=== PATIENT | male | born 1960 | race Two or more races ===

== ENCOUNTER 2024-04-05 11:50 | Inpatient (IN) | payer OTHER ==
[~2024-04-05] VITALS: Ht 167.6 cm; Wt 74.0 kg
[2024-04-05] MEDS ORDERED: ACETAMINOPHEN TAB 650MG DOSE (2X325MG) PO PRN (13:10)
[2024-04-05 14:25] VITALS: BP 126/80; TEMP 98.3; O2SAT 98
[2024-04-05] MEDS ORDERED: CLOP75TA2 PO (18:23)
[2024-04-05] MEDS ORDERED: ACET650T15 PO (18:23)
[2024-04-05] MEDS ORDERED: HUMA100I3 SC (18:23)
[2024-04-05] MEDS ORDERED: ASPI81TA26 PO (18:23)
[2024-04-05] MEDS ORDERED: LORATADINE 10 MG TAB PO PRN (19:05)
[2024-04-05] MEDS ORDERED: HOME MED LIST COMPLETE! XX SCH ×3 (19:40→20:20)
[2024-04-05] MEDS ORDERED: ATOR80TA59 PO (19:48)
[2024-04-05 20:00] VITALS: BP 135/80; TEMP 97.3; O2SAT 98
[2024-04-05] MEDS ORDERED: NORV5TAB PO (20:01)
[2024-04-05] MEDS ORDERED: ATOR40TA75 PO (20:18)
[2024-04-05] MEDS: ATORVASTATIN 20 MG TAB PO SCH (20:26)
[2024-04-05 23:13] VITALS: BP 137/82; TEMP 97.9; O2SAT 97
[2024-04-05] MEDS: CALCIUM CARBONATE 500 MG CHEW U/D PO PRN (23:52)
[2024-04-06 04:00] VITALS: BP 140/38; TEMP 97.9; O2SAT 96
[2024-04-06 06:37] LABS: HEMATOCRIT 37.7 % (42.0-52.0); HEMOGLOBIN 12.3 g/dl (13.5-17.5); MEAN CORPUSCULAR HEMOGLOBIN 24.6 pg (27.0-33.0); MEAN CORPUSCULAR HGB CONC 32.6 g/dl (32.0-36.5); MEAN CORPUSCULAR VOLUME 75.4 fl (80.0-96.0); PLATELET COUNT, AUTOMATED 294 10^3/uL (150-450); WHITE BLOOD COUNT 7.6 10^3/uL (4.0-10.0)
[2024-04-06 07:06] LABS: BLOOD UREA NITROGEN 14 MG/DL (9-23); CALCIUM LEVEL 9.1 MG/DL (8.3-10.6); CARBON DIOXIDE LEVEL 26 MMOL/L (20-31); CHLORIDE LEVEL 107 MMOL/L (98-107); GLOMERULAR FILTRATION RATE > 60.0 (>49); GLUCOSE, FASTING 88 MG/DL (74-106); POTASSIUM SERUM 4.1 MMOL/L (3.5-5.1); SODIUM LEVEL 139 MMOL/L (136-145)
[2024-04-06] MEDS: CLOPIDOGREL 75 MG TAB PO SCH (07:12)
[2024-04-06] MEDS: ASPIRIN 81MG ENTERIC TABLET PO SCH (07:12)
[2024-04-06 12:00] VITALS: BP 145/74; TEMP 97.9; O2SAT 97
[2024-04-06 20:00] VITALS: BP 137/83; TEMP 97.7; O2SAT 98
[2024-04-07 04:00] VITALS: BP 143/79; TEMP 97.6; O2SAT 98
[2024-04-07 12:00] VITALS: BP 140/74; TEMP 97; O2SAT 98
[2024-04-07 20:00] VITALS: BP 161/97; TEMP 98.2; O2SAT 96
[2024-04-07 22:35] VITALS: BP 139/78
[2024-04-08 04:00] VITALS: BP 122/76; TEMP 98.7; O2SAT 100
[2024-04-08 12:00] VITALS: BP 114/74; TEMP 97.9; O2SAT 97
[2024-04-08 20:00] VITALS: BP 124/64; TEMP 97.6; O2SAT 100
[2024-04-09 04:00] VITALS: BP 126/75; TEMP 98.3; O2SAT 100
[2024-04-09 12:00] VITALS: BP 123/85; TEMP 98.1; O2SAT 99
[2024-04-09 20:00] VITALS: BP 134/83; TEMP 98.2; O2SAT 99
[2024-04-10 04:00] VITALS: BP 140/76; TEMP 98.1; O2SAT 100
[2024-04-10 12:00] VITALS: BP 130/82; TEMP 97.6; O2SAT 98
[2024-04-10 20:00] VITALS: BP 140/87; TEMP 98.1; O2SAT 96
[2024-04-11 04:00] VITALS: BP 135/79; TEMP 98.1; O2SAT 96
[2024-04-11 12:00] VITALS: BP 135/91; TEMP 98; O2SAT 99
[2024-04-11 20:00] VITALS: BP 136/88; TEMP 97.5; O2SAT 99
[2024-04-12 04:20] VITALS: BP 142/79; TEMP 97.3; O2SAT 99
[2024-04-12 12:00] VITALS: BP 138/82; TEMP 97; O2SAT 100
[2024-04-12] MEDS ORDERED: NORV5TAB PO (15:33)
[2024-04-12] MEDS ORDERED: FERR325T3 PO (15:33)
[2024-04-12] MEDS ORDERED: ASPI81TAEC PO (15:33)
[2024-04-12] MEDS ORDERED: B-12100021 PO (15:33)
[2024-04-12] MEDS ORDERED: CLOP75TA2 PO (15:33)
[2024-04-12] MEDS ORDERED: ATOR40TA75 PO (15:33)
[2024-04-12 20:00] VITALS: BP 139/85; TEMP 98; O2SAT 100
[2024-04-13 04:00] VITALS: BP 122/85; TEMP 97.7; O2SAT 99
[2024-04-13 08:28] VITALS: BP 122/85
== END 2024-04-13 12:30 | disposition home or self-care (01) | DRG 58 ==
LOC: M PM&R 14:25
PROVIDERS: ADMIT Student in an Organized Health Care Education/Training Program; ATTEND Student in an Organized Health Care Education/Training Program
DX: I69.354 Hemiplegia and hemiparesis following cerebral infarction affecting left non-dominant side (principal); I10 Essential (primary) hypertension; D64.9 Anemia, unspecified; E53.8 Deficiency of other specified B group vitamins; E61.1 Iron deficiency; F17.220 Nicotine dependence, chewing tobacco, uncomplicated; M21.372 Foot drop, left foot; F10.10 Alcohol abuse, uncomplicated; R27.8 Other lack of coordination; Z79.899 Other long term (current) drug therapy; N43.3 Hydrocele, unspecified; L72.0 Epidermal cyst

== ENCOUNTER 2024-04-28 13:57 | Inpatient (IN) | payer OTHER ==
[~2024-04-28] VITALS: Ht 167.6 cm; Wt 67.1 kg
[~2024-04-28 13:57] MED LIST: ACET650T15 PO; ASPI81TA26 PO; ASPI81TAEC PO; ATOR40TA75 PO; ATOR80TA59 PO; B-12100021 PO; CLOP75TA2 PO; FERR325T3 PO; HUMA100I3 SC; NORV5TAB PO
[2024-04-28] MEDS ORDERED: ACETAMINOPHEN TAB 650MG DOSE (2X325MG) PO PRN (15:25)
[2024-04-28] MEDS ORDERED: MIRALAX *UNIT DOSE* 17GM PACKET PO PRN (15:25)
[2024-04-28 16:50] VITALS: BP 157/89; TEMP 98.6; O2SAT 100
[2024-04-28] MEDS ORDERED: ACET1TAB55 PO (17:57)
[2024-04-28] MEDS ORDERED: ASPI-226 PO (17:57)
[2024-04-28] MEDS ORDERED: FERR325T3 PO (17:57)
[2024-04-28] MEDS ORDERED: HOME MED LIST COMPLETE! XX SCH (18:00)
[2024-04-28 20:00] VITALS: BP 154/85; TEMP 98.4; O2SAT 99
[2024-04-28] MEDS: ATORVASTATIN 20 MG TAB PO SCH (20:06)
[2024-04-29 04:00] VITALS: BP 114/73; TEMP 97.8; O2SAT 97
[2024-04-29] MEDS: ENOXAPARIN 40MG/0.4ML SYRINGE (J1650 PER 10MG) SC SCH (07:47)
[2024-04-29] MEDS: CLOPIDOGREL 75 MG TAB PO SCH (07:47)
[2024-04-29] MEDS: FERROUS SULFATE 325MG TAB PO SCH (07:47)
[2024-04-29] MEDS: ASPIRIN 81MG ENTERIC TABLET PO SCH (07:47)
[2024-04-29 08:29] LABS: BASO # 0.1 10^3/uL (0.0-0.2); BASO % 0.7 % (0.0-1.0); EOS # 2.2 10^3/uL (0.0-0.5); HEMATOCRIT 40.3 % (42.0-52.0); HEMOGLOBIN 12.9 g/dl (13.5-17.5); LYMPH # 1.8 10^3/uL (1.5-5.0); LYMPH % 20.4 % (24.0-44.0); MEAN CORPUSCULAR HEMOGLOBIN 24.6 pg (27.0-33.0); MEAN CORPUSCULAR VOLUME 76.8 fl (80.0-96.0); MONO # 0.4 10^3/uL (0.0-0.8); MONO % 4.4 % (2.0-8.0); NEUTROPHILS # 4.5 10^3/uL (1.5-8.5); NEUTROPHILS % 50.2 % (36.0-66.0); PLATELET COUNT, AUTOMATED 310 10^3/uL (150-450); RED BLOOD COUNT 5.25 10^6/uL (4.30-6.10)
[2024-04-29 08:44] LABS: EOS % 23.9 % (0.0-3.0)
[2024-04-29 09:00] LABS: BLOOD UREA NITROGEN 9 MG/DL (9-23); CALCIUM LEVEL 9.4 MG/DL (8.3-10.6); CARBON DIOXIDE LEVEL 25 MMOL/L (20-31); CHLORIDE LEVEL 105 MMOL/L (98-107); CREATININE FOR GFR 1.08 MG/DL (0.70-1.30); GLOMERULAR FILTRATION RATE > 60.0 (>49); GLUCOSE, FASTING 88 MG/DL (74-106); POTASSIUM SERUM 4.2 MMOL/L (3.5-5.1); SODIUM LEVEL 136 MMOL/L (136-145)
[2024-04-29] MEDS ORDERED: amLODIPine 5 MG TAB PO SCH (09:00)
[2024-04-29 12:00] VITALS: BP 116/78; TEMP 98.4; O2SAT 97
[2024-04-29 20:00] VITALS: BP 142/85; TEMP 97.5; O2SAT 98
[2024-04-30 04:00] VITALS: BP 126/80; TEMP 98.8; O2SAT 95
[2024-04-30 12:00] VITALS: BP 139/78; TEMP 99.2; O2SAT 97
[2024-04-30 20:00] VITALS: BP 139/78; TEMP 98.6; O2SAT 97
[2024-05-01 04:00] VITALS: BP 122/87; TEMP 98.2; O2SAT 97
[2024-05-01 07:10] LABS: HEMATOCRIT 37.1 % (42.0-52.0); MEAN CORPUSCULAR HEMOGLOBIN 24.6 pg (27.0-33.0); MEAN CORPUSCULAR HGB CONC 32.3 g/dl (32.0-36.5); MEAN CORPUSCULAR VOLUME 76.2 fl (80.0-96.0); PLATELET COUNT, AUTOMATED 297 10^3/uL (150-450); RED BLOOD COUNT 4.87 10^6/uL (4.30-6.10); WHITE BLOOD COUNT 9.5 10^3/uL (4.0-10.0)
[2024-05-01 12:00] VITALS: BP 120/86; TEMP 98.2; O2SAT 99
[2024-05-01 20:00] VITALS: BP 162/87; TEMP 98.7; O2SAT 97
[2024-05-02 04:00] VITALS: BP 120/74; TEMP 97.8; O2SAT 98
[2024-05-02 11:50] VITALS: BP 121/86; TEMP 98.1; O2SAT 96
[2024-05-02 20:00] VITALS: BP 144/82; TEMP 97.9; O2SAT 98
[2024-05-03 04:00] VITALS: TEMP 97.7; O2SAT 98
[2024-05-03 11:50] VITALS: BP 127/78; TEMP 97.7; O2SAT 97
[2024-05-03 20:00] VITALS: BP 154/90; TEMP 98.2; O2SAT 97
[2024-05-04 04:00] VITALS: TEMP 97.7; O2SAT 98
[2024-05-04 12:00] VITALS: BP 120/76; TEMP 97.1; O2SAT 100
[2024-05-04] MEDS ORDERED: FERR1TAB8 PO (13:53)
== END 2024-05-04 14:45 | disposition home or self-care (01) | DRG 58 ==
LOC: M PM&R 16:55
PROVIDERS: ADMIT Student in an Organized Health Care Education/Training Program; ATTEND Student in an Organized Health Care Education/Training Program
DX: I69.354 Hemiplegia and hemiparesis following cerebral infarction affecting left non-dominant side (principal); U07.1 COVID-19; I10 Essential (primary) hypertension; F10.20 Alcohol dependence, uncomplicated; E78.5 Hyperlipidemia, unspecified; D50.9 Iron deficiency anemia, unspecified; M21.372 Foot drop, left foot; F17.220 Nicotine dependence, chewing tobacco, uncomplicated; Z79.82 Long term (current) use of aspirin; Z79.899 Other long term (current) drug therapy; R27.8 Other lack of coordination; Z86.16 Personal history of COVID-19

== ENCOUNTER → 2024-05-06 | Outpatient (CLI) | payer OTHER ==
[~2024-05-06] MED LIST changes: +ACET1TAB55 PO; +ASPI-226 PO; +FERR1TAB8 PO
== END ==
LOC: M EKG 15:45
PROVIDERS: ATTEND Internal Medicine
DX: I63.9 Cerebral infarction, unspecified (principal); Z53.9 Procedure and treatment not carried out, unspecified reason